=== PATIENT | female | born 1980 | race Caucasian/White ===

== ENCOUNTER 2017-05-29 02:00 | Emergency (ER) | payer MEDICAID ==
[~2017-05-29] VITALS: Ht 162.6 cm; Wt 59.0 kg
[2017-05-29] MEDS ORDERED: EPIPEN 2-P0.3 MG/0.3 IM (02:15)
[2017-05-29] MEDS ORDERED: YAZ 28 TABLET1 EACH PO (02:15)
[2017-05-29] MEDS ORDERED: NORCO 5-325 TA1 EACH PO (02:43)
== END 2017-05-29 02:59 | disposition home or self-care (01) ==
LOC: ED 02:00
DX: J20.9 Acute bronchitis, unspecified (principal); Z88.0 Allergy status to penicillin; Z91.038 Other insect allergy status; Z79.899 Other long term (current) drug therapy
CPT/HCPCS: 71010; 99283